=== PATIENT | female | born 1995 | race Caucasian/White ===

== ENCOUNTER 2016-07-26 20:46 | Observation (INO) | payer OTHER ==
[~2016-07-26] VITALS: Ht 152.4 cm; Wt 52.2 kg
[2016-07-26 23:09] LABS: HEMOGLOBIN 10.6 gm/dl (12.3-15.3)
[2016-07-27 04:57] LABS: RED BLOOD COUNT 3.24 M/UL (4.00-5.10); WHITE BLOOD COUNT 8.2 K/UL (4.5-11.0)
[2016-07-27 05:20] LABS: BUN/CREATININE RATIO 35 (0-10)
[2016-07-27 14:45] LABS: HEMOGLOBIN 10.4 gm/dl (12.3-15.3)
[2016-07-27] MEDS ORDERED: NORCO 5-325 TA1 EACH PO (16:49)
[2016-07-27] MEDS ORDERED: COLACE 100MG C100 MG PO (16:50)
[2016-07-27] MEDS ORDERED: IBUPROFEN600 MG PO (16:51)
== END 2016-07-27 18:09 | disposition home or self-care (01) ==
LOC: M/S 20:46
PROVIDERS: ADMIT Obstetrics & Gynecology
PROC: [UNRECOGNIZED PROCEDURE] (principal; 2016-07-27 11:11)
DX: N83.201 Unspecified ovarian cyst, right side (principal); N83.11 Corpus luteum cyst of right ovary; K66.1 Hemoperitoneum; F17.210 Nicotine dependence, cigarettes, uncomplicated; Z79.899 Other long term (current) drug therapy
CPT/HCPCS: 36415; 80053; 85014; 85018; 85027; 96374; 96375; 96376; G0378; G0379; J1100; J2250; J2270; J2405; J2710; J2795; J3010; J7120